=== PATIENT | female | born 1975 ===

== ENCOUNTER 2023-06-06 16:00 | Outpatient (CLI) | payer OTHER | END 2023-06-06 16:01 | disposition home or self-care (01) | LOC: BICRAD 16:00 | PROVIDERS: ATTEND Nurse Practitioner Women's Health | DX: M25.561 Pain in right knee (principal) ==

== ENCOUNTER 2023-07-08 08:25 | Outpatient (CLI) | payer OTHER | END 2023-07-08 08:26 | disposition home or self-care (01) | LOC: BICMAMMO 08:25 | PROVIDERS: ATTEND Dermatology | DX: Z12.31 Encounter for screening mammogram for malignant neoplasm of breast (principal) | CPT/HCPCS: 77063; 77067 ==